=== PATIENT | male | born 2000 | race Caucasian/White ===

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

== ENCOUNTER 2021-01-27 06:01 | Emergency (ER) | payer OTHER ==
[~2021-01-27] VITALS: Ht 185.4 cm; Wt 78.8 kg
[2021-01-27 07:58] LABS: MEAN CORPUSCULAR HGB CONC 34.2 g/dL (33.2-36.2); MEAN PLATELET VOLUME 7.2 fL (7.4-10.4); PLATELET COUNT 192 x10^3/uL (130-400); RED BLOOD COUNT 4.44 x10^6/uL (4.38-5.82); RED CELL DISTRIBUTION WIDTH 13.7 % (9.4-14.8)
--- NOTE | 2021-01-27 08:00 | NUR ---
PT HAS CO SWOLLEN LYMPH NODES, AND LUQ ABDOMINAL PAIN FOR 2 WEEKS. NO N/V OR PROBLEMS URINATING
[2021-01-27 08:06] LABS: ALANINE AMINOTRANSFERASE 237 U/L (12-78); ALBUMIN 3.5 g/dL (3.4-5.0); ANION GAP 4 mmol/L (5-15); CALCIUM 8.7 mg/dL (8.5-10.1); CHLORIDE 107 mmol/L (98-107); CREATININE 0.88 mg/dL (0.7-1.3)
[2021-01-27 08:08] LABS: ALKALINE PHOSPHATASE 103 U/L (45-117); BILIRUBIN,TOTAL 0.9 mg/dL (0.2-1.0); TOTAL PROTEIN 6.9 g/dL (6.4-8.2)
[2021-01-27 08:39] LABS: BAND#(MANUAL) 0.21 x10^3/uL; BANDS%(MANUAL) 2 % (0-7); LYMPH#(MANUAL) 4.92 x10^3/uL (1-6.1); LYMPHS% (MANUAL) 46 % (22-44); MONOS#(MANUAL) 0.75 x10^3/uL (0.3-2.7); MONOS% (MANUAL) 7 % (2-9); REACTIVE LYMPHS # (MANUAL) 2.14 x10^3/uL (0-0); REACTIVE LYMPHS % (MANUAL) 20 % (0-0); SEG#(MANUAL) 2.68 x10^3/uL (1.8-8); SEGS% (MANUAL) 25 % (42-75)
[2021-01-27 08:41] LABS: <PLATELET ESTIMATE> ADEQUATE; <PLT MORPHOLOGY> NORMAL PLT MORPH; <RBC MORPHOLOGY> NORMAL
[2021-01-27 09:28] VITALS: BP 117/61
--- NOTE | 2021-01-27 09:33 | NUR ---
PT AMBULATED TO BATHROOM
[2021-01-27 09:44] LABS: MICROSCOPIC INDICATED
--- NOTE | 2021-01-27 10:32 | NUR ---
Patient given discharge instructions and they have confirmed that they understand the instructions. Patient ambulatory with steady gait.
== END 2021-01-27 10:35 | disposition home or self-care (01) ==
LOC: ED 08:23
DX: B27.09 Gammaherpesviral mononucleosis with other complications (principal); R10.12 Left upper quadrant pain; Z88.0 Allergy status to penicillin
CPT/HCPCS: 36415; 74018; 80053; 81001; 83690; 85025; 86308; 87081; 87086; 87147; 87880; 99284